=== PATIENT | male | born 1940 | race Caucasian/White ===

== ENCOUNTER 2023-06-27 11:56 | Inpatient (IN) | payer MEDICARE, OTHER ==
[~2023-06-27] VITALS: Ht 175.3 cm; Wt 99.5 kg
[2023-06-27 13:00] VITALS: PULSE 105; RESP 20; O2SAT 97
[2023-06-27 14:04] LABS: Basophils # (auto) 0.1 10 ^3/uL (0-0.2); Basophils % (auto) 0.7 % (0.0-2.0); Eosinophils # (auto) 0 10 ^3/uL (0-0.8); Eosinophils % (auto) 0.1 % (0.0-7.0); Hematocrit 39.4 % (41.0-53.0); Hemoglobin 13.2 g/dL (13.5-17.5); Lymphocytes # (auto) 0.5 10 ^3/uL (0.4-5.4); Lymphocytes % (auto) 2.8 % (10.0-50.0); Mean Corpuscular Hemoglobin 31.4 pg (28.0-32.0); Mean Corpuscular Hgb Conc. 33.4 g/dL (32.0-36.0); Mean Corpuscular Volume 93.9 fL (80.0-100.0); Monocytes # (auto) 1.1 10 ^3/uL (0-1.3); Neutrophils % (auto) 90.4 % (37.0-80.0); Red Blood Cells 4.19 10^6/uL (4.5-5.90); Red Cell Distribution Width 13.3 % (11.8-14.3); White Blood Cell 17.6 10^3/uL (4.4-10.8)
[2023-06-27 14:22] LABS: Albumin 3.7 g/dL (3.2-4.8); Alkaline Phosphatase 68 U/L (46-116); Anion Gap 2 (5-15); Aspartate Aminotransferase 16 U/L (13-40); BUN/Creatinine Ratio 8.9 (10.0-20.0); Bilirubin, Total 0.8 mg/dL (0.2-1.0); Blood Urea Nitrogen 8 mg/dL (9-23); Calcium 8.5 mg/dL (8.7-10.4); Carbon Dioxide 29 mmol/L (20-30); Chloride 101 mmol/L (98-107); Glucose 128 mg/dL (74-106); INR 1.09 (0.9-1.15); Magnesium 1.8 mg/dL (1.6-2.6); Partial Thromboplastin Time 30.4 SEC (24.5-34.5); Potassium 4.2 mmol/L (3.5-5.1); Prothrombin Time 11.4 sec (9.3-11.8); Sodium 132 mmol/L (136-145)
[2023-06-27 14:23] LABS: Alanine Aminotransferase < 9 U/L (7-40); Total Protein 4.9 g/dL (5.7-8.2)
[2023-06-27] MEDS: SODIUM CHLORIDE 0.9% 1,000 ML IV ONE (15:40)
[2023-06-27] MEDS: CIPROFLOXACIN 400MG/200ML 200 ML IV ONE (15:40)
[2023-06-27] MEDS: VANCOMYCIN 1GM/200ML 200 ML IV ONE (15:40)
[2023-06-27 16:15] LABS: Urine Bacteria NONE SEEN /hpf (None Seen); Urine Blood Negative /uL (Negative); Urine Clarity Clear (Clear); Urine Color Yellow (Yellow); Urine Hyaline Cast FEW /lpf (0 - 2); Urine Protein, UAD Negative (Negative); Urine Specific Gravity 1.008 (1.001-1.035); Urine Urobilinogen Normal (Negative); Urine WBC <1 /hpf (0 - 3)
[2023-06-27] MEDS: AZTREONAM 1GM INJ 1 GM in D5W 5% 50 ML IV ONE (16:18)
[2023-06-27] MEDS: CARBIDOPA W LEVODOPA 25/100mg TABLET PO SCH (16:22)
[2023-06-27] MEDS: AMANTADINE HCL 100 MG CAP PO SCH (16:41)
[2023-06-27] MEDS ORDERED: NITROGLYCERIN 0.4 MG SL TAB SL PRN (17:15)
[2023-06-27] MEDS ORDERED: MORPHINE SULFATE INJ 2 MG/ml SYRG IV PRN (17:15)
[2023-06-27] MEDS: DOXYCYCLINE 100MG/250ML 250 ML IV SCH (17:15)
[2023-06-27] MEDS ORDERED: ONDANSETRON HCL 4 MG/2 ML VIAL IV PRN (17:15)
[2023-06-27 17:54] VITALS: PULSE 99; RESP 20; O2SAT 95
[2023-06-27] MEDS: IPRATROPIUM BROM 0.5 MG/2.5ML INH SOL NEB PRN (17:54)
[2023-06-27] MEDS: ALBUTEROL SULF 2.5 MG/0.5ML(0.5%) NEB SOLN NEB PRN (17:54)
[2023-06-27] MEDS: SODIUM CHLORIDE 0.9% 1,000 ML IV SCH (17:57)
[2023-06-27 18:00] VITALS: PULSE 100; RESP 20; O2SAT 97
[2023-06-27 18:11] VITALS: BP 95/67; PULSE 99; RESP 18; O2SAT 97
[2023-06-27 22:00] VITALS: BP_SYST 137; BP_SYST 157; BP_DIAS 66; PULSE 86; RESP 18; TEMP 97.7; TEMP 97.9; O2SAT 98
[2023-06-27] MEDS ORDERED: AMAN100C22 PO (23:57)
[2023-06-27] MEDS ORDERED: DULO20CA PO (23:57)
[2023-06-27] MEDS ORDERED: CARB-118 PO (23:57)
[2023-06-27] MEDS ORDERED: CHOL20007 PO (23:57)
[2023-06-27] MEDS ORDERED: SODI1TAB2 OR (23:57)
[2023-06-27] MEDS ORDERED: HYDR200T36 PO (23:57)
[2023-06-27] MEDS ORDERED: ROPI1TAB78 PO (23:57)
[2023-06-27] MEDS ORDERED: ASPI-543 PO (23:57)
[2023-06-27] MEDS ORDERED: OMEP20TA PO (23:57)
[2023-06-27] MEDS ORDERED: TAMS0.4C36 PO (23:57)
[2023-06-27] MEDS ORDERED: ATEN50TA PO (23:57)
[2023-06-27] MEDS ORDERED: ASCO500T11 PO (23:57)
[2023-06-27] MEDS ORDERED: HYDR-4902 PO (23:57)
[2023-06-27] MEDS ORDERED: ACET650T5 PO (23:57)
[2023-06-27] MEDS ORDERED: ATOR80TA PO (23:57)
[2023-06-27] MEDS ORDERED: FINA5TAB4 PO (23:57)
[2023-06-27] MEDS ORDERED: ALEN70TA74 PO (23:57)
[2023-06-27] MEDS ORDERED: PRED1PAK8 PO (23:57)
[2023-06-27] MEDS ORDERED: GABA-1250 PO (23:57)
[2023-06-27] MEDS ORDERED: HYDR25TA4 PO (23:57)
[2023-06-27] MEDS ORDERED: PREG50CA PO (23:57)
[2023-06-28] VITALS (14 sets, daily range): BP systolic 111–157; BP diastolic 63–92; PULSE 66–96; RESP 16–21; TEMP 97.3–98.1; O2SAT 91–99
[2023-06-28 05:33] LABS: Anion Gap 4 (5-15); Carbon Dioxide 26 mmol/L (20-30); Chloride 102 mmol/L (98-107); Potassium 4.1 mmol/L (3.5-5.1); Sodium 132 mmol/L (136-145)
[2023-06-28 05:34] LABS: Calcium 8.8 mg/dL (8.7-10.4)
[2023-06-28 05:38] LABS: Basophils # (auto) 0 10 ^3/uL (0-0.2); Basophils % (auto) 0.2 % (0.0-2.0); Eosinophils # (auto) 0.1 10 ^3/uL (0-0.8); Eosinophils % (auto) 0.9 % (0.0-7.0); Hematocrit 37.1 % (41.0-53.0); Hemoglobin 12.6 g/dL (13.5-17.5); Lymphocytes # (auto) 1.4 10 ^3/uL (0.4-5.4); Lymphocytes % (auto) 11.1 % (10.0-50.0); Mean Corpuscular Hemoglobin 31.8 pg (28.0-32.0); Mean Corpuscular Hgb Conc. 33.9 g/dL (32.0-36.0); Mean Corpuscular Volume 93.7 fL (80.0-100.0); Monocytes # (auto) 1.3 10 ^3/uL (0-1.3); Monocytes % (auto) 10.4 % (0.0-12.0); Neutrophils # (auto) 9.8 10 ^3/uL (1.6-8.6); Neutrophils % (auto) 77.4 % (37.0-80.0); Red Blood Cells 3.96 10^6/uL (4.5-5.90); Red Cell Distribution Width 13.4 % (11.8-14.3); White Blood Cell 12.6 10^3/uL (4.4-10.8)
[2023-06-28 05:39] LABS: Blood Urea Nitrogen 8 mg/dL (9-23); Glucose 105 mg/dL (74-106)
[2023-06-28] MEDS: GABAPENTIN 300 MG CAP PO SCH (06:02)
[2023-06-28] MEDS: PREGABALIN 25 MG CAP PO SCH (06:03)
[2023-06-28 08:43] LABS: Hepatitis B Surface Antigen Negative (Negative)
[2023-06-28 09:04] LABS: Hepatitis C Antibody Negative (Negative)
[2023-06-28] MEDS: FAMOTIDINE (10MG/ML) 2ML VL IV SCH (10:01)
[2023-06-28] MEDS: ATENOLOL 25 MG TAB PO ONE (11:50)
[2023-06-28] MEDS: HYDROcodone-ACET 5/325MG TAB PO PRN (11:51)
[2023-06-28] MEDS: ALBUTEROL SULF 2.5 MG/0.5ML(0.5%) NEB SOLN NEB SCH (12:19)
[2023-06-28] MEDS: IPRATROPIUM BROM 0.5 MG/2.5ML INH SOL NEB SCH (12:19)
[2023-06-28] MEDS: DULOXETINE HCL 20 MG PO SCH (14:00)
[2023-06-28] MEDS: TAMSULOSIN HYDROCHLORIDE 0.4 MG CAP PO SCH (17:03)
[2023-06-28] MEDS ORDERED: PATIENTS OWN MEDICATION (Omeprazole (Gnp Omeprazole) 20 MG) PO SCH (22:00)
[2023-06-28] MEDS: hydrOXYchloroQUINE SULFATE 200 MG TAB PO SCH (22:38)
[2023-06-29] VITALS (11 sets, daily range): BP systolic 114–138; BP diastolic 62–86; PULSE 63–88; RESP 18–22; TEMP 36.4–36.7; O2SAT 90–98
[2023-06-29 06:13] LABS: Basophils # (auto) 0 10 ^3/uL (0-0.2); Basophils % (auto) 0.6 % (0.0-2.0); Eosinophils # (auto) 0.1 10 ^3/uL (0-0.8); Eosinophils % (auto) 1.6 % (0.0-7.0); Hematocrit 38.6 % (41.0-53.0); Hemoglobin 13.1 g/dL (13.5-17.5); Lymphocytes # (auto) 1.3 10 ^3/uL (0.4-5.4); Lymphocytes % (auto) 14.7 % (10.0-50.0); Mean Corpuscular Hemoglobin 31.9 pg (28.0-32.0); Mean Corpuscular Hgb Conc. 33.9 g/dL (32.0-36.0); Mean Corpuscular Volume 94.1 fL (80.0-100.0); Monocytes # (auto) 1.1 10 ^3/uL (0-1.3); Monocytes % (auto) 12.3 % (0.0-12.0); Neutrophils # (auto) 6.1 10 ^3/uL (1.6-8.6); Neutrophils % (auto) 70.8 % (37.0-80.0); Red Cell Distribution Width 13.5 % (11.8-14.3); White Blood Cell 8.7 10^3/uL (4.4-10.8)
[2023-06-29] MEDS: FINASTERIDE 5 MG TAB PO SCH (09:36)
[2023-06-29] MEDS: ATENOLOL 25 MG TAB PO SCH (09:37)
[2023-06-29] MEDS: ASPirin-EC 81 mg tab PO SCH (09:37)
[2023-06-29] MEDS: PANTOPRAZOLE 40 MG TAB PO SCH (09:37)
[2023-06-29] MEDS: ROPINIROLE HYDROCHLORIDE 1 MG PO SCH (10:00)
[2023-06-29] MEDS: CHOLECALCIFEROL 2000 UNIT PO SCH (10:00)
[2023-06-29] MEDS ORDERED: DOXY-448 PO (13:58)
[2023-06-29] MEDS: CHOLECALCIFEROL (VITD3) 1,000UNIT=25mCg TAB PO ONE (17:20)
[2023-06-29] MEDS ORDERED: ATORVASTATIN 20 MG TAB PO SCH (22:00)
[2023-06-30] MEDS ORDERED: CHOLECALCIFEROL (VITD3) 1,000UNIT=25mCg TAB PO SCH (10:00)
== END 2023-06-29 18:21 | disposition home or self-care (01) | DRG 193 ==
LOC: ER 11:56 → EDBD 11:56 → TELE 17:18 → TELE-WESTW 22:00
PROVIDERS: ADMIT Hospitalist; ATTEND Hospitalist
DX: J18.9 Pneumonia, unspecified organism (principal); G93.41 Metabolic encephalopathy; C91.41 Hairy cell leukemia, in remission; J44.0 Chronic obstructive pulmonary disease with (acute) lower respiratory infection; E87.1 Hypo-osmolality and hyponatremia; E86.0 Dehydration; M06.9 Rheumatoid arthritis, unspecified; G20.A1 Parkinson's disease without dyskinesia, without mention of fluctuations; I10 Essential (primary) hypertension; E78.5 Hyperlipidemia, unspecified; Z92.21 Personal history of antineoplastic chemotherapy; Z85.01 Personal history of malignant neoplasm of esophagus; Z88.1 Allergy status to other antibiotic agents; Z79.82 Long term (current) use of aspirin; Z79.899 Other long term (current) drug therapy; Z92.3 Personal history of irradiation; Z87.891 Personal history of nicotine dependence; Z93.1 Gastrostomy status; I95.9 Hypotension, unspecified
CPT/HCPCS: 36415; 70450; 71045; 80048; 80053; 81001; 83605; 83735; 83880; 84484; 85025; 85610; 85730; 86803; 87040; 87340; 93005; 93306; 94640; 97110; 97116; 97163; 99291; G0378; J3490; J7060